=== PATIENT | female | born 1950 | race Caucasian/White ===

== ENCOUNTER 2017-11-19 08:20 | Day surgery (SDC) | payer MEDICARE, OTHER ==
[2017-11-19 08:18] VITALS: O2SAT 98
[~2017-11-19 08:20] MED LIST: MIDAZOLAM INJ 2 MG/2 ML VIAL ONE; PROPARACAINE 0.5% OPHTH SOL 15 ML BTTL ONE; TOBRAMYCIN SULF 0.3 % OPHT SOL 1 DROP LEFT_EYE ONE; TROP 1%/CYCLOPEN 1%/PHENYL 2% DROPS ONE
[2017-11-19] MEDS ORDERED: PROPARACAINE 0.5% OPHTH SOL 15 ML BTTL LEFT_EYE ONE (09:02)
[2017-11-19] MEDS ORDERED: TOBRAMYCIN SULF 0.3 % OPHT SOL 1 DROP LEFT_EYE ONE ×2 (09:13→09:20)
[2017-11-19] MEDS ORDERED: LIDOCAINE 1% PF 2 ML AMP INJ ONE (09:13)
[2017-11-19] MEDS ORDERED: BRIMONIDINE 0.2% OPHTH DROPS LEFT_EYE ONE ×2 (09:13→09:20)
[2017-11-19] MEDS ORDERED: DEXAMETHASONE 0.1% OPHTH SOL 1 DROP LEFT_EYE ONE ×2 (09:14→09:20)
[2017-11-19 09:48] VITALS: BP 134/76; TEMP 97.4
== END 2017-11-19 10:00 | disposition home or self-care (01) ==
LOC: AMB 08:20
PROVIDERS: ATTEND Ophthalmology
DX: H25.12 Age-related nuclear cataract, left eye (principal)
CPT/HCPCS: 00142; 66984; J2250

== ENCOUNTER 2017-12-03 05:41 | Day surgery (SDC) | payer MEDICARE, OTHER ==
[2017-12-03] MEDS ORDERED: TROP 1%/CYCLOPEN 1%/PHENYL 2% DROPS ONE (06:00)
[2017-12-03] MEDS ORDERED: MIDAZOLAM INJ 2 MG/2 ML VIAL ONE (06:52)
[2017-12-03] MEDS: PROPARACAINE 0.5% OPHTH SOL 15 ML BTTL ONE ×3 (07:47→08:51)
[2017-12-03] MEDS ORDERED: TOBRAMYCIN SULF 0.3 % OPHT SOL 1 DROP RIGHT_EYE ONE ×3 (07:47→09:07)
[2017-12-03] MEDS ORDERED: LIDOCAINE 1% PF 2 ML AMP INJ ONE (08:55)
[2017-12-03] MEDS ORDERED: DEXAMETHASONE 0.1% OPHTH SOL 1 DROP RIGHT_EYE ONE ×2 (09:00→09:07)
[2017-12-03] MEDS ORDERED: BRIMONIDINE 0.2% OPHTH DROPS RIGHT_EYE ONE ×2 (09:01→09:07)
[2017-12-03 09:31] VITALS: BP 160/81; O2SAT 98
[2017-12-03 14:28] VITALS: TEMP 98
== END 2017-12-03 09:45 | disposition home or self-care (01) ==
LOC: AMB 05:41
PROVIDERS: ATTEND Ophthalmology
DX: H25.11 Age-related nuclear cataract, right eye (principal)
CPT/HCPCS: 00142; 66984; J2250